=== PATIENT | male | born 2000 ===

== ENCOUNTER 2023-06-25 08:23 | Day surgery (SDC) | payer BC, SELFPAY ==
[2023-06-25] MEDS ORDERED: Ketorolac Tromethamine 30 MG (1 mL) VIAL ONE (08:55)
[2023-06-25] MEDS ORDERED: EPINEPHrine 1 MG/ML VIAL ONE (10:09)
[2023-06-25] MEDS ORDERED: Bupivacaine PF 0.5% 30 ML VIAL ONE (10:10)
[2023-06-25] MEDS ORDERED: fentaNYL PF 100 MCG/2 ML SYRINGE ONE (10:21)
[2023-06-25] MEDS ORDERED: Midazolam HCl 2 mg/2 ml Vial ONE (10:21)
[2023-06-25] MEDS ORDERED: PROPOFOL 20 ML ONE (10:21)
[2023-06-25] MEDS ORDERED: Rocuronium Bromide 10 MG/ML (10ML VIAL) ONE (10:22)
[2023-06-25] MEDS ORDERED: Ondansetron PF 4 MG/2 ML Vial ONE (10:22)
[2023-06-25] MEDS ORDERED: Lidocaine 1% PF 5 ML VIAL ONE (10:22)
[2023-06-25] MEDS ORDERED: SUGAMMADEX SODIUM 200 MG/2 ML VIAL ONE (10:43)
== END 2023-06-25 12:31 | disposition home or self-care (01) ==
LOC: SDC 08:23
PROVIDERS: ATTEND Specialist
PROC: 0DTJ4ZZ Resection of Appendix, Percutaneous Endoscopic Approach (ICD-10-PCS; principal; 2023-06-25)
DX: K35.80 Unspecified acute appendicitis (principal); Z88.1 Allergy status to other antibiotic agents
CPT/HCPCS: 88304; A4314; A4649; J0171; J0665; J1885; J2250; J2405; J2704